=== PATIENT | male | born 1955 | race Caucasian/White ===

== ENCOUNTER 2016-12-09 09:00 | Day surgery (SDC) | payer OTHER ==
[~2016-12-09] VITALS: Ht 185.4 cm; Wt 127.0 kg
[~2016-12-09 09:00] MED LIST: LEVO175T5 PO; Sodium Chloride LOK Flush 10 mL Syringe IV PRN; fentaNYL-PF 50 mCg/mL 2 mL Inj IVPUSH PRN
[2016-12-09 09:23] VITALS: BP 145/95; PULSE 72; RESP 16
[2016-12-09] MEDS: 0.9% Sodium Chloride 1,000 ML IV SCH ×2 (09:49→11:05)
[2016-12-09 10:38] VITALS: BP 136/79; PULSE 70; RESP 16; O2SAT 90
[2016-12-09 10:48] VITALS: BP 119/79; PULSE 75; RESP 16; O2SAT 93
--- NOTE | 2016-12-09 10:58 | ENDO ---
[address] [address] ENDOSCOPY PROCEDURE PATIENT: ASHLEY GUEVARA : 1955 MR#: [id number] ADMIT: 12/09/2016 JOB ID: [id number] DATE: 12/09/2016 PROCEDURE: Colonoscopy. INDICATION: The patient with personal history of colon polyps. 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 The patient's ASA classification is 2. Mallampati score is 2. MEDICATIONS: 1. Versed 3 mg. 2. Fentanyl 75 mcg. INSTRUMENT USED: PCF H 180 AL. PREPARATION QUALITY: Was fair. PROCEDURE DETAIL: After informed consent was obtained, the patient was brought into the GI suite, where he was placed on oxygen via nasal cannula and monitored with continuous pulse oximeter, telemetry and blood pressure monitoring. A time-out was performed. Then, he was placed in the left lateral decubitus position and medications were administered for sedation. Digital rectal examination was performed, which was unremarkable. The colonoscope was then inserted into the rectum and advanced under direct visualization to the cecum, which was identified by the presence of the ileocecal valve and appendiceal orifice. Once the cecum was reached, the colonoscope was withdrawn back into the rectum. Mucosa and lumen were examined. In the rectum, retroflexion was performed. Following retroflexion, the remaining air in the rectum was suctioned, and the procedure was completed. FINDINGS: 1. In the descending colon, there was an approximately 4 mm sessile polyp that was removed with a cold snare. 2. Scattered diverticula were seen throughout the left side of the colon. 3. Small internal hemorrhoids. IMPRESSION: 1. Descending colon polyp. 2. Left-sided diverticulosis. 3. Small internal hemorrhoids. RECOMMENDATIONS: 1. Fiber rich diet. 2. Repeat colonoscopy in one year. COMPLICATIONS: None. ESTIMATED BLOOD LOSS: Less than 5 mL.
--- NOTE | 2016-12-12 13:58 | PATH ---
SURGICAL PATHOLOGY Attending Physician:Perez Mendieta CASE STATUS: Signed Out PATIENT NAME: ASHLEY GUEVARA PID: [id number] : 1955 DATE COLLECTED:12/09/2016 18:54 SPECIMEN: Colon, Biopsy CLINICAL HISTORY: 1). DESCENDING POLYP FINAL DIAGNOSIS: 1.DESCENDING COLON POLYP: CHANGES CONSISTENT WITH HYPERPLASTIC POLYP. ICD10 CODE K63.5 GROSS DESCRIPTION: Received in formalin, labeled with the patient' s name and "descending polyp", is one fragment of mills, soft tissue measuring 0.2 x 0.1 x 0.1 cm. The fragment is totally submitted in one cassette. ([id number]) MICRO DESCRIPTION: See diagnosis. ICD-9 CODES: CPT CODES: 1: 95366 Electronically Signed Out Danny Robertson MD [facility] Pathology [facility] [address], [place] [address] Technical component performed at [facility], [facility] [address], [place], [address]
== END 2016-12-09 23:59 | disposition home or self-care (01) ==
LOC: END 09:00
PROVIDERS: ATTEND Internal Medicine Gastroenterology
DX: Z12.11 Encounter for screening for malignant neoplasm of colon (principal); Z86.010 Personal history of colon polyps; K63.5 Polyp of colon; K64.8 Other hemorrhoids; K57.30 Diverticulosis of large intestine without perforation or abscess without bleeding; E89.0 Postprocedural hypothyroidism; M54.41 Lumbago with sciatica, right side; Z87.891 Personal history of nicotine dependence; Z85.850 Personal history of malignant neoplasm of thyroid
CPT/HCPCS: 45385; G0500; J7030